=== PATIENT | female | born 1995 | race Caucasian/White ===

== ENCOUNTER 2019-06-26 20:39 | Emergency (ER) | payer OTHER ==
[~2019-06-26] VITALS: Ht 162.6 cm; Wt 79.3 kg
[2019-06-26 21:35] VITALS: BP 110/72
[2019-06-26 21:37] LABS: HCG UR SG 1.009 (1.003-1.030); MICROSCOPIC AUTO
[2019-06-26 21:40] LABS: CULTURE INDICATED? NO
--- NOTE | 2019-06-26 21:41 | NUR ---
PT 10 WEEKS . SO FAR UNCOMPLICATED . FIRST PREGNACY. "CRAMPING EARLIER" PT STATES SHE HAD AN EPISODE OF DIARRHEA. "GUSH OF BLOOD OUT" DENIES AND SIGNIFICANT MEDICAL HISTORY.
[2019-06-26 21:53] LABS: BASOPHILS # (AUTO) 0.02 x10^3/uL (0-0.1); BASOPHILS % (AUTO) 0 % (0-1); EOSINOPHILS # (AUTO) 0.08 x10^3/uL (0-0.4); EOSINOPHILS % (AUTO) 1 % (1-7); LYMPHOCYTES # (AUTO) 2.45 x10^3/uL (1-3.4); LYMPHOCYTES % (AUTO) 36 % (22-44); MD NO; MEAN CORPUSCULAR HEMOGLOBIN 30.5 pg (27.0-34.8); MEAN CORPUSCULAR HGB CONC 33.8 g/dL (32.4-35.8); MEAN CORPUSCULAR VOLUME 90.3 fL (80-100); MEAN PLATELET VOLUME 6.4 fL (7.4-10.4); MONOCYTES # (AUTO) 0.43 x10^3/uL (0.2-0.8); MONOCYTES % (AUTO) 6 % (2-9); NEUTROPHILS # (AUTO) 3.83 x10^3/uL (1.8-6.8); NEUTROPHILS % (AUTO) 56 % (42-75); PLATELET COUNT 305 x10^3/uL (130-400); RED BLOOD COUNT 4.01 x10^6/uL (3.82-5.3); RED CELL DISTRIBUTION WIDTH 13.2 % (9.6-15.2)
[2019-06-26 22:05] LABS: ALBUMIN 3.1 g/dL (3.4-5.0); ANION GAP 6 mmol/L (5-15); CALCIUM 8.8 mg/dL (8.5-10.1); CHLORIDE 107 mmol/L (98-107); CREATININE 0.58 mg/dL (0.55-1.02)
--- NOTE | 2019-06-26 22:58 | NUR ---
Patient/Caregiver given discharge instructions and they have confirmed that they understand the instructions. Patient ambulatory with steady gait.
== END 2019-06-26 23:12 | disposition home or self-care (01) ==
LOC: ED 22:45
DX: O20.0 Threatened abortion (principal); R82.71 Bacteriuria
CPT/HCPCS: 36415; 76801; 80048; 81001; 81025; 82040; 84702; 85025; 86901; 99284

== ENCOUNTER 2019-12-23 05:25 | Emergency (ER) | payer OTHER, MEDICAID ==
[~2019-12-23] VITALS: Ht 162.6 cm; Wt 107.0 kg
--- NOTE | 2019-12-23 05:41 | NUR ---
L&D AWARE AND NOTE THAT THEY WILL BE COMING DOWN TO CHECK BABIES THIS AM.
[2019-12-23] MEDS ORDERED: omeprazole (05:56)
[2019-12-23] MEDS ORDERED: prenatal (05:56)
--- NOTE | 2019-12-23 05:56 | NUR ---
L&D at bedside assessing babies
[2019-12-23 06:42] LABS: BASOPHILS % (AUTO) 0 % (0-1); EOSINOPHILS # (AUTO) 0.03 x10^3/uL (0-0.4); EOSINOPHILS % (AUTO) 0 % (1-7); LYMPHOCYTES # (AUTO) 0.67 x10^3/uL (1-3.4); LYMPHOCYTES % (AUTO) 11 % (22-44); MD NO; MEAN CORPUSCULAR HEMOGLOBIN 31.8 pg (27.0-34.8); MEAN CORPUSCULAR HGB CONC 33.8 g/dL (32.4-35.8); MEAN CORPUSCULAR VOLUME 94.3 fL (80-100); MEAN PLATELET VOLUME 8.3 fL (7.4-10.4); MONOCYTES # (AUTO) 0.32 x10^3/uL (0.2-0.8); MONOCYTES % (AUTO) 5 % (2-9); NEUTROPHILS # (AUTO) 5.24 x10^3/uL (1.8-6.8); NEUTROPHILS % (AUTO) 84 % (42-75); PLATELET COUNT 196 x10^3/uL (130-400); RED BLOOD COUNT 3.95 x10^6/uL (3.82-5.3); RED CELL DISTRIBUTION WIDTH 15.6 % (9.6-15.2)
--- NOTE | 2019-12-23 06:45 | NUR ---
Karson&Unique garcia said that both babies look good on the monitor with both babies HR ranging between 140-150 BPM
[2019-12-23 06:54] LABS: ALBUMIN 2.6 g/dL (3.4-5.0); ANION GAP 12 mmol/L (5-15); CALCIUM 8.6 mg/dL (8.5-10.1); CHLORIDE 110 mmol/L (98-107)
[2019-12-23 06:59] LABS: ALANINE AMINOTRANSFERASE 37 U/L (12-78); ALKALINE PHOSPHATASE 176 U/L (45-117); BILIRUBIN,TOTAL 0.4 mg/dL (0.2-1.0); CREATININE 0.76 mg/dL (0.55-1.02); TOTAL PROTEIN 6.3 g/dL (6.4-8.2); TROPONIN I < 0.015 ng/mL (0.000-0.045)
--- NOTE | 2019-12-23 07:00 | NUR ---
REPORT FROM GLENN. NO NEEDS A THIS TIME. VSS
--- NOTE | 2019-12-23 07:27 | NUR ---
dr sewell spoke with dr dna
--- NOTE | 2019-12-23 07:30 | NUR ---
PT AMUBLATED TO BATHROOM W STEADY GATE. NO NEEDS AT THIS THIS TIME. UA SENT
[2019-12-23 08:14] LABS: MICROSCOPIC INDICATED
--- NOTE | 2019-12-23 08:30 | NUR ---
PT RESTING, NO NEEDS AT THIS TIME. LABS PENDING
[2019-12-23 09:04] VITALS: BP 128/81
--- NOTE | 2019-12-23 09:30 | NUR ---
PT STATES SHE FEELS WARM, TEMP 99.3. VSS. GIVEN PILLOW AND WARM BLANKET
== END 2019-12-23 10:00 | disposition home or self-care (01) ==
LOC: ED 06:14
DX: O98.513 Other viral diseases complicating pregnancy, third trimester (principal); U07.1 COVID-19; J02.8 Acute pharyngitis due to other specified organisms; R06.02 Shortness of breath; R00.0 Tachycardia, unspecified; E86.0 Dehydration; Z3A.36 36 weeks gestation of pregnancy
CPT/HCPCS: 36415; 71045; 80053; 81001; 83605; 83880; 84484; 85025; 87086; 87486; 87581; 87633; 87798; 93005; 99285; U0001